=== PATIENT | female | born 1940 | race Caucasian/White ===

== ENCOUNTER 2017-03-09 09:42 | Day surgery (SDC) | payer OTHER ==
[~2017-03-09 09:42] MED LIST: Acetaminophen TAB* 325 MG PO PRN; Buffered Lidocaine 0.9% SYRIN* 5 ML/SYR SYRINGE INTRADERM ONE
[2017-03-09] MEDS ORDERED: Midazolam* 1 MG/ML 2 ML VIAL (2 MG) ONE ×2 (12:14→12:30)
[2017-03-09] MEDS ORDERED: fentaNYL* 50 MCG/ML 2 ML VIAL (100 MCG VIAL) ONE (12:28)
[2017-03-09 13:28] VITALS: BP 103/64
[2017-03-09] MEDS ORDERED: Ketorolac 0.5% OPHTH (NF) 0.5 % 5 ML BTL ONE (13:52)
[2017-03-09] MEDS ORDERED: Proparacaine 0.5% OPHTH.SOL* 15 ML BTL ONE (13:53)
[2017-03-09] MEDS ORDERED: acetaZOLAMIDE TAB* 250 MG ONE (13:53)
[2017-03-09] MEDS ORDERED: Phenylephrine 2.5% OPTH.SOL* 2 ML BTL ONE (13:53)
[2017-03-09] MEDS ORDERED: Lidocaine 2% EPI 1:200000 MPF* 20 ML VIAL ONE (13:53)
[2017-03-09] MEDS ORDERED: Neomycin/Polymy/Dex OPTH.SUSP* MAXITROL 0.1% 5 ML ONE (13:53)
[2017-03-09] MEDS ORDERED: Buffered Lidocaine 0.9% SYRIN* 5 ML/SYR SYRINGE ONE (13:53)
[2017-03-09] MEDS ORDERED: Lidocaine 1% MPF* 2 ML VIAL ONE (13:53)
[2017-03-09] MEDS ORDERED: Povidone Iodine 5% OPTH* 30 ML BTL ONE (13:53)
[2017-03-09] MEDS ORDERED: Cyclopentolate 1% OPTH.SOL* 2 ML BTL ONE (13:53)
--- NOTE | 2017-03-09 15:49 | OP ---
DATE OF OPERATION: 03/09/2017 - [facility] DATE OF : 1940. SURGEON: Luis Mayen M.D. PREOPERATIVE DIAGNOSIS: Cataract right eye. POSTOPERATIVE DIAGNOSIS: Cataract right eye. OPERATIVE PROCEDURE: Phacoemulsification right eye with IOL. DESCRIPTION OF PROCEDURE: The patient was brought to the operating room after being given 1/2% Alcaine with epinephrine drops in the preoperative area. The eye was prepped and draped in the usual sterile fashion. Sterile drape and eyelid speculum were placed. Again, topical 1/2% Alcaine with epinephrine was given. A paracentesis incision was made at the 9 o'clock position with the No.75 blade. Clear cornea incision 2.2 x 2.2-mm was created at the 12 o'clock position starting at the anterior limbus using the 2.2-mm keratome. The anterior chamber was irrigated with 0.4 mL of 1% non-preservative intracameral lidocaine and filled with DisCoVisc. A capsulorrhexis was completed using the cystotome and the Utrata forceps. Hydrodissection was performed with balanced salt solution. The lens nucleus was removed with the Phacoemulsification handpiece without incident. Cortex was removed with the irrigation-aspiration handpiece. The capsular bag was re-inflated using DisCoVisc and an [id number] 23.5 implant was inserted with the shooter. The irrigation-aspiration handpiece was used to remove all residual DisCoVisc. The eye was refilled with balanced salt solution and the wound checked and found to be watertight. Topical Maxitrol drops were given. [id number]/[facility] #: [id number] [facility]
[2017-03-15] MEDS ORDERED: Buffered Lidocaine 0.9% SYRIN* 5 ML/SYR SYRINGE INTRADERM ONE (11:23)
[2017-03-16] MEDS ORDERED: Acetaminophen TAB* 325 MG PO PRN (05:00)
== END 2017-03-09 13:43 | disposition home or self-care (01) ==
LOC: OREAST 09:42
PROVIDERS: ATTEND Specialist
DX: H25.811 Combined forms of age-related cataract, right eye (principal); H43.813 Vitreous degeneration, bilateral; Z79.899 Other long term (current) drug therapy; E03.9 Hypothyroidism, unspecified; E78.00 Pure hypercholesterolemia, unspecified
CPT/HCPCS: A9270-GY; J2250; J3010; V2632

== ENCOUNTER 2017-11-12 12:45 | Emergency (ER) | payer OTHER ==
[2017-11-12 13:33] VITALS: BP 100/62
[2017-11-12] MEDS ORDERED: Tetracaine 0.5% OPTH.SOL 4 ML* 1 DROP BTL LEFT EYE ONE (14:07)
[2017-11-12] MEDS ORDERED: Fluorescein Sod TOPICAL 0.6* 0.6 MG TEST OPHTHALMIC ONE (14:08)
--- NOTE | 2017-11-12 14:54 | UC ---
Eye Complaint HPI - HPI Summary HPI Summary: c/o redness, itching and stinging of left eye since this morning, and that she spent most of the day in the garden yesterday. Denies discharge from eye, denies foreign body sensation, states she has mostly stinging and redness. Denies chills, blurred vision, fever - History of Current Complaint Chief Complaint: UCEye Stated Complaint: EYE ISSUE Time Seen by Provider: 11/12/17 13:56 Hx Obtained From: Patient ?: No Onset/Duration: Sudden Onset, Lasting Hours Timing: Constant Severity Initially: Mild Severity Currently: Mild Pain Intensity: 0 Pain Scale Used: 0-10 Numeric Location of Injury: Conjunctiva Aggravating Factor(s): Nothing Alleviating Factor(s): Nothing Associated Signs And Symptoms: Positive: Negative - Risk Factors Penetrating Injury Risk Factor: Negative Globe Rupture Risk Factors: Negative Optic Artery Occlusion Risk Factors: Negative - Allergies/Home Medications Allergies/Adverse Reactions: Allergies Allergy/AdvReac Type Severity Reaction Status Date / Time MS Clioquinol [From Hysone] Allergy Severe Unknown Verified 11/12/17 13:34 Reaction Details MS Hydrocortisone Allergy Severe Unknown Verified 11/12/17 13:34 [From Hysone] Reaction Details MS Iodine [Iodine] Allergy Intermediate Rash Verified 11/12/17 13:34 MS Latex [Latex] Allergy Intermediate Rash Verified 11/12/17 13:34 MS Papaya Derivatives Allergy Intermediate STOMACH Verified 11/12/17 13:34 [Papaya Derivatives] ACHE MS Nickel [Nickel] Allergy Unknown Verified 11/12/17 13:34 Reaction Details MS Hydrocodone [Hydrocodone] AdvReac Intermediate Vomiting Verified 11/12/17 13: 34 Home Medications: Home Medications Biotin [Biotin Ultra Strength] 10 mg PO EVERY OTHER DAY 11/12/17 [History Confirmed 11/12/17] PMH/Surg Hx/FS Hx/Imm Hx Previously Healthy: Yes Endocrine History: Hypothyroidism Psychological History: Depression - Surgical History Surgical History: Yes Surgery Procedure, Year, and Place: TONSILLECTOMY. APPENDECTOMY. CHOLECYSECTOMY. . URETHRAL SURGERY. LASER SX OF UTERINE FIBROIDS - Social History Alcohol Use: Rare Substance Use Type: None Smoking Status (MU): Never Smoked Tobacco - Immunization History Most Recent Influenza Vaccination: FALL 2013 Most Recent Tetanus Shot: UP TO DATE Most Recent Pneumonia Vaccination: UP TO DATE Review of Systems Eyes: Eye Redness All Other Systems Reviewed And Are Negative: Yes Physical Exam Triage Information Reviewed: Yes Appearance: Well-Appearing, No Pain Distress, Well-Nourished Vital Signs: Initial Vital Signs Temp 98.6 F 11/12/17 13:23 Pulse 78 11/12/17 13:23 Resp 16 11/12/17 13:23 BP 100/62 11/12/17 13:23 Pulse Ox 97 11/12/17 13:23 Vital Signs Reviewed: Yes Eyes: Positive: Conjunctiva Inflamed, Other: - eyelid evertion did not reveal any foreign body, uptake of fluorescein on small area of sclera inferior in midline, no uptake in cornea, JEFFERY, no hyphema, EOM wnl Neck: Positive: Supple Respiratory: Positive: Chest non-tender Cardiovascular: Positive: Pulses Normal, Brisk Capillary Refill Eye Complaint Course/Dx - Course Course Of Treatment: conjunctivitis, start cipro ophthalmic drops as prescribed , f/u eye clinic within a week for f/u - Differential Dx/Diagnosis Provider Diagnoses: conjunctivitis left eye Discharge - Sign-Out/Discharge Documenting (check all that apply): Discharge/Admit/Transfer - Discharge Plan Condition: Stable Disposition: HOME Prescriptions: Ciprofloxacin 0.3% OPTH.VIVI* [Cipro 0.3% Opth*] 1 drop LEFT EYE Q4H 5 Days #1 btl Patient Education Materials: Ciprofloxacin (By mouth), Conjunctivitis (ED) Referrals: Daisy Gaytan NP [Primary Care Provider] - Luis Mayen MD [Medical Doctor] - Additional Instructions: follow up with ophthalmology clinic within a week - Billing Disposition and Condition Condition: STABLE Disposition: Home
== END 2017-11-12 14:37 | disposition home or self-care (01) ==
LOC: UCEAST 12:45
DX: H10.32 Unspecified acute conjunctivitis, left eye (principal); E03.9 Hypothyroidism, unspecified; F32.9 Major depressive disorder, single episode, unspecified; Z88.5 Allergy status to narcotic agent; Z88.8 Allergy status to other drugs, medicaments and biological substances; Z88.3 Allergy status to other anti-infective agents; Z91.040 Latex allergy status
CPT/HCPCS: 99212; A9270-GY; G0463

== ENCOUNTER 2019-07-05 18:06 | Emergency (ER) | payer OTHER, MEDICARE ==
--- OUTSIDE RECORDS SUMMARY | 2019-07-05 18:40 | XMS REPORT | Continuity of Care Document ---
:1940 External Reference #:[id number] Author Name Jody Shannon M.D., FACP (transmitted by agent of provider Lenora Daniels) Address [address], [place] [address] Care Team Providers Name Role Phone Jody Shannon MD - Internal Medicine Care Team Information Cdl Flatbed Truck Driver [phone] Lis Fong MD - Internal Care Team Information [employer]dl [employer]bed Truck Driver [phone] Medicine Problems Active Problems Provider Date Pure hypercholesterolemia Jody Shannon M.D., FACP Onset: 04/20/2011 Hypothyroidism Jody Shannon M.D., FACP Onset: 04/20/2011 Social History Type Date Description Comments Sex Unknown ETOH Use Currently consumes Seldom alcohol Tobacco Use Start: Unknown Patient has never smoked Smoking Status Reviewed: 05/24/19 Patient has never smoked Exercise Exercises regularly [place], goes to the Type/Frequency gym Allergies, Adverse Reactions, Alerts Active Allergies Reaction Severity Comments Date Iodine Urticaria Moderate 12/09/2009 Hydrocodone Nausea and Vomiting Severe 09/15/2010 Latex Contact dermatitis Moderate 08/03/2012 Nickel Contact dermatitis Moderate 08/03/2012 Hyscon Severe 08/07/2013 Medications Active Medications SIG Qnty Indications Ordering Date Provider Amitriptyline HCL 1 by mouth qhs 30tabs K58.1 Jody Shannon, 05/24/2019 10mg M.D., FACP Tablets Azithromycin 2 by mouth day 1 6tabs H66.91 Jody Shannon, 05/18/2019 250mg 1 by mouth daily M.D., FACP Tablets until gone Alendronate Sodium take 1 tablet by 12tabs Daisy Gaytan, 01/23/2019 70mg mouth once a N.P. Tablets week, as directed Pantoprazole Sodium 1 by mouth every 30tabs K21.9 Daisy Gaytan, 2018 day N.P. 20mg Tablets DR Clark Using Applicator, 24tabs Daisy Gaytan, 10/30/2018 10mcg Tablets Insert 1 Tablet N.P. Vaginally Twice Weekly Famotidine 1 by mouth twice 30tabs Daisy Gaytan, 11/19/2016 40mg Tablets a day N.P. Fioricet take one capsule 30caps Daisy Gaytan, 08/20/2015 50-300-40mg by mouth every 6 N.P. Capsules hours as needed for headaches; maximum daily dose = 4 Vitamin C 1 po qd Jody Shannon, 08/07/2013 500mg M.D., FACP Chewtabs Levothyroxine Sodium take 1 tablet by 72tabs Daisy Gaytan, 08/21/2011 mouth 6 times a N.P. 100mcg Tablets week Centrum 1 tablet daily 100tabs Jody Shannon, 09/14/2010 Tablets M.D., FACP Remeron 08/22/18 now 90tabs [facility], 02/12/2010 15mg Tablets taking 45 mg. 3 Chandler Wise MD by mouth at bedtime Simvastatin Take 1 Tablet By 90tabs Daisy Gaytan, 12/10/2009 10mg Mouth Daily N.P. Tablets Xanax one by mouth up 20tabs Unknown 0.25mg Tablets to two times daily as needed for anxiety Vit D 1 pill 4 times a Unknown 1000Iu week Calcium 600 + D 2 tabs daily 60tabs Unknown [id number] Tablets Magnesium Malete 1 by mouth daily Unknown 400mg Tablets Ibuprofen 200 2 tabs as needed Unknown 200mg Tablets Fish Oil 2000mg daily for Unknown dry eyes Gaviscon 500MG take as needed Unknown Tylenol 2 by mouth every Unknown 325mg Tablets 6 hours as needed pain History Medications Esomeprazole Magnesium 1 by mouth 30caps K21.9 Daisy Gaytan, 12/27/2018 - every day N.P. 01/12/2019 20mg Capsules Immunizations CPT Code Status Date Vaccine Lot # [id number] Given 02/28/2019 Fluzone High Dose [id number] Given 03/01/2018 Influenza Virus Vaccine, Quadrivalent, Split, Preservative Free 63428 Given 03/16/2017 Fluzone High Dose Q2038 Given 04/17/2016 Fluzone Vaccine 02584 Given 11/20/2015 Pneumococcal Conjugate Vaccine 13 Valent For [id number] Intramuscular Use 55387 Given 03/24/2015 Influenza Virus Vaccine, Quadrivalent, Split, Preservative Free 66472 Given 03/12/2014 Flu Vaccine Split Virus Preservative Free For Indiv 3Yr Older 65614 Given 08/07/2013 Tdap - Tetanus/Diptheria/Acellular Pertussis [id number] Q2036 Given 03/01/2013 Flulaval Vaccine [id number] Given 02/12/2010 Influenza Virus 3Yrs & Over 88348 Given 08/24/2007 Zoster (Zostavax) 91396 Given 04/11/2007 Pneumonia Vaccine [id number] 27740 Given 09/04/2000 Tdap - Tetanus/Diptheria/Acellular Pertussis [id number] Vital Signs Date Vital Result Comment 05/24/2019 3:22pm Height 60.5 inches 5'0.50" Weight 110.25 lb Heart Rate 77 /min BP Systolic Sitting 105 mmHg Rue reg cuff BP Diastolic Sitting 73 mmHg Rue reg cuff O2 % BldC Oximetry 98 % BMI (Body Mass Index) 21.2 kg/m2 05/18/2019 4:34pm Height 60.5 inches 5'0.50" Weight 110.25 lb Heart Rate 74 /min BP Systolic 100 mmHg BP Diastolic 60 mmHg O2 % BldC Oximetry 97 % BMI (Body Mass Index) 21.2 kg/m2 Results Test Acquired Date Facility Test Result H/L Range Note Lipid Profile 01/11/2019 [facility] Triglycerides 52 mg/dL 1 (Trig/Chol/HDL) [address] [place] [address] [phone] Cholesterol 169 mg/dL 2 HDL Cholesterol 54.0 mg/dL 3 LDL Cholesterol 105 mg/dL 4 Comp Metabolic 01/11/2019 [facility] Sodium 141 mmol/L Normal 135-[address] [place] [address] [phone] Potassium 4.3 mmol/L Normal 3.5-5.0 Chloride 108 mmol/L Normal 101-111 Co2 Carbon Dioxide 26 mmol/L Normal 22-32 Anion Gap 7 mmol/L Normal 2-11 Glucose 107 mg/dL High 70-100 Blood Urea Nitrogen 22 mg/dL Normal 6-24 Creatinine 0.75 mg/dL Normal 0.51-0.95 BUN/Creatinine Ratio 29.3 High 8-20 Calcium 9.6 mg/dL Normal 8.6-10.3 Total Protein 6.6 g/dL Normal 6.4-8.9 Albumin 4.5 g/dL Normal 3.2-5.2 Globulin 2.1 g/dL Normal 2-4 Albumin/Globulin Ratio 2.1 Normal 1-3 Total Bilirubin 0.50 mg/dL Normal 0.2-1.0 Alkaline Phosphatase 49 U/L Normal 34-104 Alt 18 U/L Normal 7-52 Ast 20 U/L Normal 13-39 Egfr Non- 74.9 >60 Egfr 90.7 >60 5 Laboratory 01/11/2019 [facility] TSH (Thyroid 1.29 Normal 0.34 -5.60 6 test finding [address] Stim Horm) mcIU/[place] [address] [phone] 1 Desirable: <150 Borderline High: 150-199 High: 200-499 Very High: >500 2 Desirable: <200 Borderline High: 200-239 High: >239 3 Low: <40 Desirable: 40-60 High: >60 4 Desirable: <100 Near Optimal: 100-129 Borderline High: 130-159 High: 160-189 Very High: >189 5 Because ethnic data is not always readily available, this report includes an eGFR for both -Americans and non- Americans. The National Kidney Disease Education Program (NKDEP) does not endorse the use of the MDRD equation for patients that are not between the ages of 18 and 70, are , have extremes of body size, muscle mass, or nutritional status, or are non- or non-. According to the National Kidney Foundation, irrespective of diagnosis, the stage of the disease is based on the level of kidney function: Stage Description GFR(mL/min/1.73 m(2)) 1 Kidney damage with normal or decreased GFR 90 2 Kidney damage with mild decrease in GFR 60-89 3 Moderate decrease in GFR 30-59 4 Severe decrease in GFR 15-29 5 Kidney failure <15 (or dialysis) 6 FASTING 10 HOUR Procedures Date Code Description Status 01/10/2019 [id number] Bone Mineral Density Test Completed 01/09/2019 [id number] Mammogram Completed 12/06/2017 [id number] Mammogram Completed 01/07/2017 [id number] Mammogram Completed 01/06/2016 [id number] Bone Mineral Density Test Completed 01/06/2016 [id number] Mammogram Completed 11/19/2015 [id number] Colonoscopy Completed 12/30/2014 [id number] Mammogram Completed 12/21/2013 [id number] Mammogram Completed 12/20/2012 [id number] Bone Mineral Density Test Completed 12/20/2012 [id number] Mammogram Completed 12/20/2011 [id number] Mammogram Completed 01/18/2011 [id number] Mammogram Completed 01/12/2010 [id number] Mammogram Completed 01/05/2008 [id number] Bone Mineral Density Test Completed 11/07/2003 [id number] Colonoscopy Completed Medical Devices Description No Information Available Encounters Type Date Location Provider Dx Diagnosis Office Visit 12/27/2018 [employer] [facility] Daisy Gaytan, Z00.00 Encntr for general 1:40p Medicine - Ccmob N.P. adult medical exam w/o abnormal findings Z12.31 Encntr screen mammogram for malignant neoplasm of breast E03.9 Hypothyroidism, unspecified E78.00 Pure hypercholesterolemia, unspecified N95.9 Unspecified menopausal and perimenopausal disorder G47.00 Insomnia, unspecified F33.9 Major depressive disorder, recurrent, unspecified K21.9 Gastro-esophageal reflux disease without esophagitis Assessments Date Code Description Provider 05/24/2019 K58.1 Irritable bowel syndrome with constipation Jody Shannon M.D., FACP 05/24/2019 H65.21 Chronic serous otitis media, right ear Jody Shannon M.D., FACP 05/24/2019 K21.9 Gastro-esophageal reflux disease without Jody Shannon M.D. , FACP esophagitis 05/18/2019 H66.91 Otitis media, unspecified, right ear Jody Shannon M.D., FACP 05/18/2019 M19.91 Primary osteoarthritis, unspecified site Jody Shannon M.D. , FACP 05/18/2019 L29.9 Pruritus, unspecified Jody Shannon M.D., FACP 05/18/2019 R68.84 Jaw pain Jody Shannon M.D., [facility] 12/27/2018 Z00.00 Encounter for general adult medical Daisy Varn, N.P. examination without abno 12/27/2018 Z12.31 Encounter for screening mammogram for Daisy Varn, N.P. malignant neoplasm of 12/27/2018 E03.9 Hypothyroidism, unspecified Daisy Varn, N.P. 12/27/2018 E78.00 Pure hypercholesterolemia, unspecified Daisy Varn, N.P. 12/27/2018 N95.9 Unspecified menopausal and perimenopausal Daisy Varn, N.P. disorder 12/27/2018 G47.00 Insomnia, unspecified Daisy Varn, N.P. 12/27/2018 F33.9 Major depressive disorder, recurrent, Daisy Varn, N.P. unspecified 12/27/2018 K21.9 Gastro-esophageal reflux disease without Daisy Varn, N.P. esophagitis Plan of Treatment Future Appointment(s):12/31/2019 2:20 pm - Daisy Contrerasn, N.P. at [facility] Internal Medicine - [facility]05/24/2019 - Jody Shannon M.D., FACPK58.1 Irritable bowel syndrome with constipationNew Medication:Amitriptyline HCL 10 mg - 1 by mouth qhsComments:IRRITABLE BOWEL SYNDROME:There are many factors that influence gut motility. We talked about fiber,probiotics and FODMAPS. I suspect that your upper abdominal symptoms are due to this.Keep yourself well hydrated. Use a fiber supplement like Metamucil or Benefiber. Align is the name of a probiotic.I have given you some infromation from a website called [employer]. We talked about the utility of resuming a low dose of the amitriptyline.H65.21 Chronic serous otitis media, right earComments:EAR CONGESTION: I do not see any evidence of infection. I hope that your symptoms will improve as you continue the nasal steroid spray.If you feel as though your symptoms are not improving over the next week, please call me back. It is posssible that you will need to see an ENT.K21.9 Gastro-esophageal reflux disease without esophagitisComments: GASTRITIS:I understand that you are H. pylori negative but that at your last endoscopy some inflammation was seen.I think that you should follow up with a service car operator.Referral:Marcello Browning MD, Gastroenterology Functional Status Description No Information Available Mental Status Description No Information Available Referrals Refer to Reason for Referral Status Appt Date Marcello Browning MD GERD, follow up EGD Created [address] [place], [place] [id number] [phone]
--- OUTSIDE RECORDS SUMMARY | 2019-07-05 18:40 | XMS REPORT | Continuity of Care Document ---
:1940 External Reference #:[id number] Author Name Jody Shannon M.D., FACP (transmitted by agent of provider Teresa Haley ) Address [address] [place] [id number] Care Team Providers Name Role Phone Jody Shannon MD - Internal Medicine Care Team Information Hat Steamer [phone] Lis Fong MD - Internal Care Team Information Hat Steamer [phone] Medicine Problems Active Problems Provider Date Pure hypercholesterolemia Jody Shannon M.D., FACP Onset: 04/20/2011 Hypothyroidism Jody Shannon M.D., FACP Onset: 04/20/2011 Social History Type Date Description Comments Sex Unknown ETOH Use Currently consumes Seldom alcohol Tobacco Use Start: Unknown Patient has never smoked Smoking Status Reviewed: 05/18/19 Patient has never smoked Exercise Exercises regularly [place], goes to the [employer] gym Allergies, Adverse Reactions, Alerts Active Allergies Reaction Severity Comments Date Iodine Urticaria Moderate 12/09/2009 Hydrocodone Nausea and Vomiting Severe 09/15/2010 Latex Contact dermatitis Moderate 08/03/2012 Nickel Contact dermatitis Moderate 08/03/2012 Hyscon Severe 08/07/2013 Medications Active Medications SIG Qnty Indications Ordering Date Provider Azithromycin 2 by mouth day 1 6tabs H66.91 Jody Shannon, 05/18/2019 250mg 1 by mouth daily MEbonie, FACP Tablets until gone Alendronate Sodium take [...] Tablets M.D., FACP Remeron 08/22/18 now 90tabs [facility], 02/12/2010 15mg Tablets taking 45 mg. 3 Chandler Wise MD by mouth at bedtime Simvastatin Take 1 Tablet By 90tabs Daisy Gaytan, 12/10/2009 10mg Mouth Daily N.P. Tablets Xanax one by mouth up 20tabs Unknown 0.25mg Tablets to two times daily as needed for anxiety Vit D daily Unknown 1000Iu Calcium 600 + D 1 po bid 60tabs Unknown [id number] Tablets Magnesium Malete 1 by mouth daily Unknown 400mg Tablets Ibuprofen 200 2 tabs as needed Unknown 200mg Tablets Fish Oil 2000mg daily for Unknown dry eyes Gaviscon 500MG take as needed Unknown Biotin Maximum 2500 mg once Unknown Strength daily [id number] Tablets Tylenol 2 by mouth every Unknown 325mg Tablets 6 hours as needed pain History Medications Esomeprazole Magnesium 1 by mouth 30caps K21.9 Daisy Gaytan, 12/27/2018 - every day N.P. 01/12/[address] Benitez CPT Code Status Date Vaccine Lot # [id number] Given 02/28/2019 Fluzone High Dose 09039 Given 03/01/2018 Influenza Virus Vaccine, Quadrivalent, Split, Preservative Free 39152 Given 03/16/2017 Fluzone High Dose Q2038 Given 04/17/2016 Fluzone Vaccine 76219 Given 11/20/2015 Pneumococcal Conjugate Vaccine 13 Valent For [id number] Intramuscular Use 66050 Given 03/24/2015 Influenza Virus Vaccine, Quadrivalent, Split, Preservative Free 02191 Given 03/12/2014 Flu Vaccine Split Virus Preservative Free For Indiv 3Yr Older 59106 Given 08/07/2013 Tdap - Tetanus/Diptheria/Acellular Pertussis [id number] Q2036 Given 03/01/2013 Flulaval Vaccine 19083 Given 02/12/2010 Influenza Virus 3Yrs & Over 68553 Given 08/24/2007 Zoster (Zostavax) 65346 Given 04/11/2007 Pneumonia Vaccine [id number] 74491 Given 09/04/2000 Tdap - Tetanus/Diptheria/Acellular Pertussis [id number] Vital Signs Date Vital Result Comment 05/18/2019 4:34pm Height 60.5 inches 5'0.50" Weight 110.25 lb Heart Rate 74 /min BP Systolic 100 mmHg BP Diastolic 60 mmHg O2 % BldC Oximetry 97 % BMI (Body Mass Index) 21.2 kg/m2 12/27/2018 1:53pm Height 60.5 inches 5'0.50" Weight 108.00 lb Heart Rate 76 /min BP Systolic Sitting 98 mmHg BP Diastolic Sitting 66 mmHg Body Temperature 97.8 F O2 % BldC Oximetry 96 % BMI (Body Mass Index) 20.7 kg/m2 Results Test Acquired Date Facility Test Result H/L Range Note Lipid Profile 01/11/[address] [facility] Triglycerides 52 mg/dL 1 (Trig/Chol/HDL) [address] [place] [address] [phone] Cholesterol 169 mg/dL 2 HDL Cholesterol 54.0 mg/dL 3 LDL Cholesterol 105 mg/dL 4 Comp Metabolic 01/11/[address] [facility] Sodium 141 mmol/L Normal 135-[address] [place] [address] [phone] Potassium 4.3 mmol/L Normal 3.5-5.0 Chloride 108 [...] >60 Egfr 90.7 >60 5 Laboratory 01/11/[address] [facility] TSH (Thyroid 1.29 Normal 0.34 -5.60 6 test finding [address] Stim Horm) mcIU/[place] [address] [phone] 1 Desirable: <150 Borderline High: 150-199 High: [...] HOUR Procedures Date Code Description Status 01/10/2019 542045254 Bone Mineral Density Test Completed 01/09/2019 [id number] Mammogram Completed 12/06/2017 [id number] Mammogram Completed 01/07/2017 [id number] Mammogram Completed 01/06/2016 [id number] Bone Mineral Density Test Completed 01/06/2016 [id number] Mammogram Completed 11/19/2015 [id number] Colonoscopy Completed 12/30/2014 [id number] Mammogram Completed 12/21/2013 [id number] Mammogram Completed 12/20/2012 [id number] Bone Mineral Density Test Completed 12/20/2012 [id number] Mammogram Completed 12/20/2011 [id number] Mammogram Completed 01/18/2011 [id number] Mammogram Completed 01/12/2010 [id number] Mammogram Completed 01/05/2008 [id number] Bone Mineral Density Test Completed 11/07/2003 [id number] Colonoscopy Completed Medical Devices Description No Information Available Encounters Type Date Location Provider Dx Diagnosis Office Visit 12/27/2018 [facility] Daisy Gaytan Z00.00 Encntr for general 1:40p Medicine - Ccmob N.P. adult medical exam w/o abnormal findings Z12.31 Encntr screen mammogram for malignant neoplasm of breast E03.9 Hypothyroidism, unspecified E78.00 Pure hypercholesterolemia, unspecified N95.9 Unspecified menopausal and perimenopausal disorder G47.00 Insomnia, unspecified F33.9 Major depressive disorder, recurrent, unspecified K21.9 Gastro-esophageal reflux disease without esophagitis Assessments Date Code Description Provider 05/18/2019 H66.91 Otitis media, unspecified, right ear Jody Shannon M.D., FACP 05/18/2019 M19.91 Primary osteoarthritis, unspecified site Jody Shannon M.D. , FACP 05/18/2019 L29.9 Pruritus, unspecified Jody Shannon M.D., FACP 05/18/2019 R68.84 Jaw pain Jody Shannon M.D., FACP 12/27/2018 Z00.00 Encounter for general adult medical Rush Reyes.Bernadette examination without abno 12/27/2018 Z12.31 Encounter for [...] Treatment Future Appointment(s):12/31/2019 2:20 pm - Daisy Gaytan[facility] N.P. at [facility] - Jody Shannon M.D., FACPH66.91 Otitis media, unspecified, right earNew Medication:Azithromycin 250 mg - 2 by mouth day 1 1 by mouth daily until goneComments:EAR INFECTION:I have called in an rx for a stronger antibiotic to your pharmacy. I think that a nasal steroid spray may also help. 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 Since this problem represents osteoarthritis of that joint and it is the natural history of osteoarthritis to wax and wane, it is possible that your jaw symptoms will spontaneously improve. I do not think it is consistent with osteonecrosis of the jaw as a consequence of the bisphosphonate.Follow up: schedule office visit to discuss GI issues Functional Status Description No Information Available Mental Status Description No Information Available Referrals Description No Information Available
--- OUTSIDE RECORDS SUMMARY | 2019-07-05 18:40 | XMS REPORT | Continuity of Care Document ---
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 [phone] Problems Active Problems Provider Date Gastroesophageal reflux disease Asad Barajas MD Onset: 12/19/2015 Irritable bowel syndrome characterized Chacha Caban PA-C Onset: by alternating bowel habit Social History Type Date Description Comments Sex Unknown ETOH Use seldom Tobacco Use Start: Unknown Patient has never smoked Tobacco Use Start: Unknown Secondhand smoke to age 19 Smoking Status Reviewed: 06/20/19 Secondhand smoke to age 19 Allergies, Adverse Reactions, Alerts Active Allergies Reaction Severity Comments Date Hyscon 08/07/2013 Latex Contact dermatitis Moderate 08/03/2012 Nickel Contact dermatitis Moderate 08/03/2012 Hydrocodone Nausea and Vomiting Severe 09/15/2010 Iodine Urticaria Moderate 12/09/2009 Medications Active Medications SIG Qnty Indications Ordering Date Provider Famotidine take 1 tablet by 180tabs Marissa 12/19/2015 40mg Tablets mouth twice a day MD Javier Fioricet take one capsule 30caps Daisy Gaytan NP 08/20/2015 50-300-40mg by mouth every 6 Capsules hours as needed for headaches; maximum daily dose = 4 Fish Oil 1 po qd Daisy Gaytan NP 08/07/2013 1000mg Capsules Vitamin C 1 po qd Jody Shannon MD 08/07/2013 500mg Chewtabs Levothyroxine Sodium take 1 tablet 6 90tabs Daisy Gaytan NP 08/21/2011 times a week 100mcg Tablets Tylenol 1-2 tablet as Jody Shannon MD 09/14/2010 325mg Tablets needed for headaches GNP Antacid as needed Jody Shannon MD 09/14/2010 500mg Chewtabs Remeron 3 by mouth at 90tabs Unknown 02/12/2010 30mg Tablets bedtime Vagifem Insert 1 Tablet 24tabs Daisy Gaytan NP 12/10/2009 10mcg Tablets Vaginally Twice Weekly (With Applicator) Simvastatin take 1 tablet 90tabs Daisy Gatyan NP 12/10/2009 10mg daily Tablets Xanax one by mouth up 20tabs Unknown 0.25mg Tablets to three times daily as needed for anxiety Calcium 600-D 1 po bid 60tabs Unknown [id number] Tablets Immunizations Description No Information Available Vital Signs Date Vital Result Comment 06/20/2019 2:52pm Height 60.5 inches 5'0.50" Weight 112.00 lb BP Systolic 110 mmHg BP Diastolic 62 mmHg Heart Rate 73 /min BMI (Body Mass Index) 21.5 kg/m2 09/30/2017 2:54pm Height 60.5 inches 5'0.50" Weight 108.00 lb BMI (Body Mass Index) 20.7 kg/m2 Results Description No Information Available Procedures Description No Information Available Medical Devices Description No Information Available Encounters Description No Information Available Assessments Date Code Description Provider 06/20/2019 K21.9 Gastro-esophageal reflux disease without Chacha Caban PA-C esophagitis 06/20/2019 K58.2 Mixed irritable bowel syndrome Chacha Caban PA-C Plan of Treatment Future Appointment(s):07/24/2019 11:00 am - Chacha Caban PA-C at [facility]06/20/2019 - DARIEL Richard CK21.9 Gastro-esophageal reflux disease without dlixqquniaaY19.2 Mixed irritable bowel syndrome Functional Status Description No Information Available Mental Status Description No Information Available Referrals Description No Information Available
--- OUTSIDE RECORDS SUMMARY | 2019-07-05 18:40 | XMS REPORT | Continuity of Care Document ---
:1940 External Reference #:[id number] Author Name Jody Shannon M.D., FACP (transmitted by agent of provider Regla Bledsoe) Address [address], [place] [address] Care Team Providers Name Role Phone Jody Shannon MD - Internal Medicine Care Team Information Hydrologist [phone] Lis Fong MD - Internal Care Team Information Hydrologist [phone] Medicine Problems Active Problems Provider Date Pure hypercholesterolemia Jody Shannon M.D., FACP Onset: 04/20/2011 Hypothyroidism Jody Shannon M.D., FACP Onset: 04/20/2011 Social History Type Date Description Comments Sex Unknown ETOH Use Currently consumes Seldom alcohol Tobacco Use Start: Unknown Patient has never smoked Smoking Status Reviewed: 07/03/19 Patient has never smoked Exercise Exercises regularly [...] qhs 30tabs K58.1 Jody Shannon, 05/24/2019 10mg Nia, FACP Tablets Alendronate Sodium take 1 tablet by 12tabs Daisy Gaytan, 01/23/2019 70mg mouth once a N.P. Tablets week, as directed Yuvafem Using Applicator, 24tabs Daisy Gaytan, 10/30/2018 10mcg [...] Tablets week Centrum 1 tablet daily 100tabs Jdoykim Shannon, 09/14/2010 Tablets MEbonie, FACP Remeron 08/22/18 now 90tabs [facility], 02/12/2010 15mg Tablets taking 45 mg. 3 Chandler Wise MD by mouth at bedtime Simvastatin Take 1 Tablet By 90tabs Daisy Gaytan, 12/10/2009 10mg Mouth Daily N.P. Tablets Tylenol 2 by mouth every Unknown 325mg Tablets 6 hours as needed pain Gaviscon 500MG take as needed Unknown Fish Oil 2000mg daily for Unknown dry eyes Ibuprofen 200 2 tabs as needed Unknown 200mg Tablets Magnesium Malete 1 by mouth daily Unknown 400mg Tablets Calcium 600 + D 2 tabs daily 60tabs Unknown [id number] Tablets Vit D 1 pill 4 times a Unknown 1000Iu week Xanax one by mouth up 20tabs Unknown 0.25mg Tablets to two times daily as needed for anxiety History Medications Azithromycin 2 by mouth day 6tabs H66.91 Jody Shannon, 05/18/2019 - 250mg 1 1 by mouth M.Yfn, FACP 07/02/2019 Tablets daily until gone Pantoprazole Sodium 1 by mouth 30tabs K21.9 Daisy Gaytan, 01/12/2019 - every day N.P. 07/02/[address] Benitez CPT Code Status Date Vaccine Lot # [id number] Given 02/28/2019 Fluzone High Dose 63531 Given 03/01/2018 Influenza Virus Vaccine, Quadrivalent, Split, Preservative Free 61691 Given 03/16/2017 Fluzone High Dose Q2038 Given 04/17/2016 Fluzone Vaccine 22647 Given 11/20/2015 Pneumococcal Conjugate Vaccine 13 Valent For [id number] Intramuscular Use 02429 Given 03/24/2015 Influenza Virus Vaccine, Quadrivalent, Split, Preservative Free 18675 Given 03/12/2014 Flu Vaccine Split Virus Preservative Free For Indiv 3Yr Older 07108 Given 08/07/2013 Tdap - Tetanus/Diptheria/Acellular Pertussis [id number] Q2036 Given 03/01/2013 Flulaval Vaccine 13088 Given 02/12/2010 Influenza Virus 3Yrs & Over 39020 Given 08/24/2007 Zoster (Zostavax) 58938 Given 04/11/2007 Pneumonia Vaccine [id number] 22066 Given 09/04/2000 Tdap - Tetanus/Diptheria/Acellular Pertussis [id number] Vital Signs Date Vital Result Comment 07/03/2019 2:17pm Height 60.5 inches 5'0.50" Weight 111.38 lb Heart Rate 82 /min BP Systolic 100 mmHg BP Diastolic 62 mmHg Body Temperature 97.7 F O2 % BldC Oximetry 93 % BMI (Body Mass Index) 21.4 kg/m2 05/24/2019 3:22pm Height 60.5 inches 5'0.50" Weight 110.25 lb Heart Rate 77 /min BP Systolic Sitting 105 mmHg Rue reg cuff BP Diastolic Sitting 73 mmHg Rue reg cuff O2 % BldC Oximetry 98 % BMI (Body Mass Index) 21.2 kg/m2 Results Test Acquired Date Facility Test Result H/L Range Note Order 07/03/2019 [facility] In-House EKG <pending> Lipid Profile 01/11/2019 [facility] Triglycerides 52 mg/dL 1 (Trig/Chol/HDL) [address] [place] [address] [phone] Cholesterol 169 mg/dL 2 HDL Cholesterol 54.0 mg/dL 3 LDL Cholesterol 105 mg/dL 4 Comp Metabolic 01/11/2019 [facility] Sodium 141 mmol/L Normal 135-[address] [place] [address] [phone] Potassium 4.3 mmol/L Normal 3.5-5.0 Chloride 108 [...] >60 Egfr 90.7 >60 5 Laboratory 01/11/2019 [facility] TSH (Thyroid 1.29 Normal 0.34 -5.60 6 test finding [address] Stim Horm) mcIU/[place] [address] [phone] 1 Desirable: <150 Borderline High: 150-199 High: [...] 10 HOUR Procedures Date Code Description Status 07/03/2019 15915 EKG Tracing & Interpretation Completed 01/10/2019 [id number] Bone Mineral Density Test Completed 01/09/2019 [id number] Mammogram Completed 12/06/2017 [id number] Mammogram Completed 01/07/2017 [id number] Mammogram Completed 01/06/2016 [id number] Bone Mineral Density Test Completed 01/06/2016 [id number] Mammogram Completed 11/19/2015 [id number] Colonoscopy Completed 12/30/2014 [id number] Mammogram Completed 12/21/2013 [id number] Mammogram Completed 12/20/2012 [id number] Mammogram Completed 12/20/2012 [id number] Bone Mineral Density Test Completed 12/20/2011 [id number] Mammogram Completed 01/18/2011 [id number] Mammogram Completed 01/12/2010 [id number] Mammogram Completed 01/05/2008 [id number] Bone Mineral Density Test Completed 11/07/2003 [id number] Colonoscopy Completed Medical Devices Description No Information Available Encounters Type Date Location Provider Dx Diagnosis Office Visit 05/24/2019 [facility] Jody hSannon, K58.1 Irritable bowel 3:30p Medicine - Ccmob M.D., FACP syndrome with constipation H65.21 Chronic serous otitis media, right ear K21.9 Gastro-esophageal reflux disease without esophagitis Office Visit 05/18/2019 4:30p [facility] Jody Shannon, H66.91 Otitis media, Medicine - M.D., FACP unspecified, right Ccmob ear L29.9 Pruritus, unspecified R68.84 Jaw pain M79.644 Pain in right finger(s) Assessments Date Code Description Provider 07/03/2019 R00.2 Palpitations Jody Shannon M.D., FACP 05/24/2019 K58.1 Irritable bowel syndrome with constipation Jody Shannon M.D., FACP 05/24/2019 H65.21 Chronic serous otitis media, right ear Jody Shannon M.D., FACP 05/24/2019 K21.9 Gastro-esophageal reflux disease without Jody Shannon M.D. , FACP esophagitis 05/18/2019 H66.91 Otitis media, unspecified, right ear Jody Shannon M.D., FACP 05/18/2019 L29.9 Pruritus, unspecified Jody Shannon M.D., FACP 05/18/2019 R68.84 Jaw pain Jody Shannon M.D., FACP 05/18/2019 M79.644 Pain in right finger(s) [facility] Shannon M[facility]D., [facility] Plan of Treatment Future Appointment(s):07/23/2019 4:30 pm - Jody Shannon M.D., FACP at [facility] Internal [facility]07/05/2019 3:15 pm - Im Nurse Holter Monitor at [facility]07/04/2019 2:45 pm - Im Nurse Holter Monitor at [facility] Internal [facility]12/31/2019 2:20 pm - Daisy Gaytan N.P. at [facility]07/03/2019 - Jody Shannon M.D., FACPR00.2 PalpitationsNew Orders:Holter Monitor, Scheduled: 07/04/19tress Test, Exercise Nuclear, Ordered: 07/03/19Comments:PALPITATIONS:Your cardiogram today was normal.I agree that this symptom may represent anxiety.I do not think that it is related to the amitriptyline.I would like to schedule a Holter monitor (24 hour EKG).Keep well hydrated.If your symptoms do not spontaneously resolve or are accompanied by chest heaviness and/or shortness of breath, you may need to be evaluated in the Emergency Department.Follow up:After tests: 2-3 weeks Functional Status Description No Information Available Mental Status Description No Information Available Referrals Refer to Reason for Referral Status Appt Date Marcello Browning MD GERD, follow up EGD Closed 06/20/[address] [place] [address] [phone]
[2019-07-05 19:30] LABS: ABS Eosinophils 0.1 10^3/ul (0-0.6); ABS Lymphocytes 1.4 10^3/ul (1.0-4.8); ABS Monocytes 0.4 10^3/ul (0-0.8); ABS Neutrophils 3.4 10^3/ul (1.5-7.7); Eosinophil % 2.1 %; Hematocrit 39 % (35-47); Hemoglobin 13.3 g/dL (12.0-16.0); Lymphocyte % 25.4 %; Mean Corpuscular HGB Conc 35 g/dL (31-36); Mean Corpuscular Hemoglobin 31 pg (27-31); Mean Corpuscular Volume 89 fL (80-97); Mean Platelet Volume 7.9 fL (7.4-10.4); Platelet Count 195 10^3/uL (150-450); Red Blood Count 4.33 10^6 /uL (3.70-4.87); Red Cell Distribution Width 14 % (10-15); White Blood Count 5.4 10^3/uL (3.5-10.8)
[2019-07-05 19:45] LABS: INR 0.97 (0.82-1.09)
[2019-07-05 19:51] LABS: Albumin 4.2 g/dL (3.2-5.2); Albumin/Globulin Ratio 1.6 (1-3); BUN/Creatinine Ratio 24.4 (8-20); Calcium 9.1 mg/dL (8.6-10.3); EGFR African American 86.4 (>60); EGFR Non-African American 71.4 (>60); Globulin 2.7 g/dL (2-4); Potassium 3.8 mmol/L (3.5-5.0); Total Bilirubin 0.4 mg/dL (0.2-1.0); Total Protein 6.9 g/dL (6.4-8.9)
--- NOTE | 2019-07-05 23:36 | ED ---
HPI Chest Pain - HPI Summary HPI Summary: 79-year-old female with significant past medical history of hypothyroidism, anxiety, depression presents to the emergency department today stating she has been having palpitations with left sided burning feeling of her face and left arm. Patient states her symptoms are episodic and began approximately 4 days ago while she was shopping for groceries. Patient states she took Xanax as she believed it was caused by her anxiety and her symptoms improved significantly. Patient saw her primary care physician for this the following day who placed her on a 4 hour Holter monitor and told her to schedule an echocardiogram and stress test. Patient had another episode this afternoon which prompted her to come to the emergency department for further evaluation. Patient states she is a symptomatic at this time and feels much better. Patient denies recent records from drug use or alcohol use. Patient denies associated symptoms such as lightheadedness, diaphoresis, vomiting, abdominal pain. Surgical history and family history noncontributory. - History of Current Complaint Chief Complaint: EDDysrhythmPalp Time Seen by Provider: 07/05/19 23:05 Hx Obtained From: Patient Onset/Duration: Started Days Ago Timing: Intermittent, Lasting Minutes Initial Severity: Moderate Current Severity: None Pain Intensity: 0 Pain Scale Used: 0-10 Numeric Chest Pain Radiates: No - Allergy/Home Medications Allergies/Adverse Reactions: Allergies Allergy/AdvReac Type Severity Reaction Status Date / Time hydrocodone Allergy Vomiting Verified 07/05/19 22:16 hydrocortisone Allergy Unknown Verified 07/05/19 22:16 Reaction Details nickel Allergy Unknown Verified 07/05/19 22:16 Reaction Details papaya Allergy GI Upset Verified 07/05/19 22:16 iodine AdvReac Rash Verified 07/05/19 22:16 latex AdvReac Rash Verified 07/05/19 22:16 PMH/Surg Hx/FS Hx/Imm Hx Endocrine/Hematology History: Reports: Hx Thyroid Disease - hypo Denies: Hx Diabetes Cardiovascular History: Reports: Hx Angina - chest pain/discomfort, Hx Hypercholesterolemia - HLD, STARTED ON SIMVASTATIN Denies: Hx Hypertension, Hx Pacemaker/ICD GI History: Reports: Hx Gall Bladder Disease - S/P SY, Hx Gastroesophageal Reflux Disease, Other GI Disorders - hx of gall bladder stones -removed History: Reports: Hx Kidney Infection - as a child, Other Problems/ Disorders - cyst on kidney Musculoskeletal History: Reports: Hx Arthritis Denies: Hx Rheumatoid Arthritis, Hx Osteoporosis Sensory History: Reports: Hx Cataracts - both eyes, Hx Contacts or Glasses Denies: Hx Hearing Aid Opthamlomology History: Reports: Hx Cataracts - both eyes, Hx Contacts or Glasses Neurological History: Reports: Hx Headaches, Other Neuro Impairments/Disorders - VERTIGO Psychiatric History: Reports: Hx Anxiety, Hx Depression Denies: Hx Panic Disorder - Cancer History Hx Chemotherapy: No Hx Radiation Therapy: No - Surgical History Surgery Procedure, Year, and Place: TONSILLECTOMY. APPENDECTOMY. CHOLECYSECTOMY. . URETHRAL SURGERY. LASER SX OF UTERINE FIBROIDS Hx Anesthesia Reactions: Yes - has nausea and emesis after anesthesia - even after colonoscopy Infectious Disease History: No Infectious Disease History: Denies: Traveled Outside the [place] in Last 30 Days - Social History Alcohol Use: Rare Substance Use Type: Reports: None Smoking Status (MU): Never Smoked Tobacco Review of Systems Constitutional: Negative Eyes: Negative ENT: Negative Positive: Palpitations Positive: Shortness Of Breath Positive: Nausea Genitourinary: Negative Musculoskeletal: Negative Skin: Negative Neurological: Negative Positive: Anxious All Other Systems Reviewed And Are Negative: Yes Physical Exam Triage Information Reviewed: Yes Vital Signs On Initial Exam: Initial Vitals Temp Pulse Resp BP Pulse Ox 98.6 F 87 16 136/73 97 07/05/19 18:08 07/05/19 18:08 07/05/19 18:08 07/05/19 18:08 07/05/19 18:08 Vital Signs Reviewed: Yes Appearance: Positive: Well-Appearing, No Pain Distress, Well-Nourished Skin: Positive: Warm, Skin Color Reflects Adequate Perfusion Eyes: Positive: EOMI, RUPINDER ENT: Positive: Hearing grossly normal Respiratory/Lung Sounds: Positive: Clear to Auscultation, Breath Sounds Present Cardiovascular: Positive: RRR, S1, S2 Abdomen Description: Positive: Nontender, Soft Bowel Sounds: Positive: Present Musculoskeletal: Positive: Strength/ROM Intact Neurological: Positive: Sensory/Motor Intact, Alert, Oriented to Person Place, Time, Normal Gait, Facial Symmetry, Speech Normal Psychiatric: Positive: Normal, Affect/Mood Appropriate AVPU Assessment: Alert Procedures - Sedation Patient Received Moderate/Deep Sedation with Procedure: No Diagnostics - Vital Signs Vital Signs Temp Pulse Resp BP Pulse Ox 07/05/19 23:00 73 15 94 07/05/19 22:41 72 18 106/68 94 07/05/19 22:12 75 96 07/05/19 22:11 78 116/76 97 07/05/19 20:19 98.0 F 80 18 118/66 07/05/19 18:08 98.6 F 87 16 136/73 97 - Laboratory Lab Results: Lab Results 07/05/19 07/05/19 07/05/19 Range/Units 19:20 19:20 19:20 WBC 5.4 (3.5-10.8) 10^3/uL RBC 4.33 (3.70-4.87) 10^6 /uL Hgb 13.3 (12.0-16.0) g/dL Hct 39 (35-47) % MCV 89 (80-97) fL MCH 31 (27-31) pg MCHC 35 (31-36) g/dL RDW 14 (10-15) % Plt Count 195 (150-450) 10^3/uL MPV 7.9 (7.4-10.4) fL Neut % (Auto) 63.8 % Lymph % (Auto) 25.4 % Holmes % (Auto) 8.1 % Eos % (Auto) 2.1 % Baso % (Auto) 0.6 % Absolute Neuts (auto) 3.4 (1.5-7.7) 10^3/ul Absolute Lymphs (auto) 1.4 (1.0-4.8) 10^3/ul Absolute Monos (auto) 0.4 (0-0.8) 10^3/ul Absolute Eos (auto) 0.1 (0-0.6) 10^3/ul Absolute Basos (auto) 0.0 (0-0.2) 10^3/ul Absolute Nucleated RBC 0.0 10^3/ul Nucleated RBC % 0.0 INR (Anticoag Therapy) 0.97 (0.82-1.09) Sodium 141 (135-145) mmol/L Potassium 3.8 (3.5-5.0) mmol/L Chloride 107 (101-111) mmol/L Carbon Dioxide 29 (22-32) mmol/L Anion Gap 5 (2-11) mmol/L BUN 19 (6-24) mg/dL Creatinine 0.78 (0.51-0.95) mg/dL Est GFR ( Amer) 86.4 (>60) Est GFR (Non-Af Amer) 71.4 (>60) BUN/Creatinine Ratio 24.4 H (8-20) Glucose 163 H (70-100) mg/dL Calcium 9.1 (8.6-10.3) mg/dL Total Bilirubin 0.40 (0.2-1.0) mg/dL AST 20 (13-39) U/L ALT 16 (7-52) U/L Alkaline Phosphatase 46 (34-104) U/L Troponin I 0.00 (<0.03) ng/mL Total Protein 6.9 (6.4-8.9) g/dL Albumin 4.2 (3.2-5.2) g/dL Globulin 2.7 (2-4) g/dL Albumin/Globulin Ratio 1.6 (1-3) 07/05/19 Range/Units 22:36 WBC (3.5-10.8) 10^3/uL RBC (3.70-4.87) 10^6 /uL Hgb (12.0-16.0) g/dL Hct (35-47) % MCV (80-97) fL MCH (27-31) pg MCHC (31-36) g/dL RDW (10-15) % Plt Count (150-450) 10^3/uL MPV (7.4-10.4) fL Neut % (Auto) % Lymph % (Auto) % Holmes % (Auto) % Eos % (Auto) % Baso % (Auto) % Absolute Neuts (auto) (1.5-7.7) 10^3/ul Absolute Lymphs (auto) (1.0-4.8) 10^3/ul Absolute Monos (auto) (0-0.8) 10^3/ul Absolute Eos (auto) (0-0.6) 10^3/ul Absolute Basos (auto) (0-0.2) 10^3/ul Absolute Nucleated RBC 10^3/ul Nucleated RBC % INR (Anticoag Therapy) (0.82-1.09) Sodium (135-145) mmol/L Potassium (3.5-5.0) mmol/L Chloride (101-111) mmol/L Carbon Dioxide (22-32) mmol/L Anion Gap (2-11) mmol/L BUN (6-24) mg/dL Creatinine (0.51-0.95) mg/dL Est GFR ( Amer) (>60) Est GFR (Non-Af Amer) (>60) BUN/Creatinine Ratio (8-20) Glucose (70-100) mg/dL Calcium (8.6-10.3) mg/dL Total Bilirubin (0.2-1.0) mg/dL AST (13-39) U/L ALT (7-52) U/L Alkaline Phosphatase (34-104) U/L Troponin I 0.00 (<0.03) ng/mL Total Protein (6.4-8.9) g/dL Albumin (3.2-5.2) g/dL Globulin (2-4) g/dL Albumin/Globulin Ratio (1-3) Result Diagrams: 07/05/19 19:20 07/05/19 19:20 Lab Statement: Any lab studies that have been ordered have been reviewed, and results considered in the medical decision making process. Chest Pain Course/Dx - Course Course Of Treatment: Patient was evaluated in the emergency department today for chest pain. Patient seen and examined her vitals were stable and she is afebrile. EKG was done promptly which shows normal sinus rhythm at a rate of 80 bpm. No evidence of STEMI. Normal axis. There are mild ST segment changes and 23 and aVF however these are noted on past EKGs. No evidence of active ischemia on EKG. Laboratory studies were done which returned within normal limits. Initial troponin and serial troponin 0.00. HEART score 4. Patient's risk for VA was discussed with the patient and she did not desire to be admitted. The patient believes her symptoms to be due to anxiety and she wishes to be discharged and to follow-up with her primary care provider tomorrow for further evaluation. - Chest Pain Differential Diagnosis/HQI/PQRI: Acute VA, ACS, Angina, Other: - anxiety - Diagnoses Provider Diagnoses: Chest pain Discharge ED - Sign-Out/Discharge Documenting (check all that apply): Patient Departure - Discharge Plan Condition: Stable Disposition: HOME Patient Education Materials: Chest Pain (ED) Referrals: Jody Shannon MD [Primary Care Provider] - Additional Instructions: You were seen in the emergency department today due to chest pain. Laboratory studies as well as an EKG were done which showed no evidence of acute medical problems requiring intervention at this time. Although your workup in the emergency department was unremarkable I cannot be certain your symptoms are not cardiac in origin. Please follow-up with your primary care provider in 3 days for further evaluation and management. Please return to the emergency department immediately if you develop any new or worsening symptoms. - Billing Disposition and Condition Condition: STABLE Disposition: Home
[2019-07-06 00:17] VITALS: BP 124/75
== END 2019-07-06 | disposition home or self-care (01) ==
LOC: ED 18:06
DX: R07.9 Chest pain, unspecified (principal); E03.9 Hypothyroidism, unspecified; E78.00 Pure hypercholesterolemia, unspecified; E78.5 Hyperlipidemia, unspecified; K21.9 Gastro-esophageal reflux disease without esophagitis; F41.9 Anxiety disorder, unspecified; F32.9 Major depressive disorder, single episode, unspecified; Z90.89 Acquired absence of other organs; Z90.49 Acquired absence of other specified parts of digestive tract; Z79.899 Other long term (current) drug therapy; Z88.5 Allergy status to narcotic agent; Z88.8 Allergy status to other drugs, medicaments and biological substances; Z91.041 Radiographic dye allergy status; Z91.040 Latex allergy status
CPT/HCPCS: 36415; 80053; 84484; 85025; 85610; 93005; 99283

== ENCOUNTER 2019-09-28 16:12 | Emergency (ER) | payer MEDICARE, OTHER ==
--- OUTSIDE RECORDS SUMMARY | 2019-09-28 16:26 | XMS REPORT | Continuity of Care Document ---
:1940 External Reference #:[id number] Author Name Whtiley Gallardo MD Address 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 70mg Tablets as directed Yuvafem Using Applicator, 24tabs Daisy Gaytan, 10/30/2018 10mcg Tablets Insert 1 Tablet N.P. Vaginally Twice Weekly Famotidine 1 by mouth twice a 30tabs Daisy Gaytan, 11/19/2016 40mg day N.P. Tablets Fioricet take one capsule by 30caps Daisy Gaytan, 08/20/2015 50-300-40mg mouth every 6 hours N.P. Capsules as needed for headaches; maximum daily dose = 4 Vitamin C 1 po qd Jody Shannon, 08/07/2013 500mg M.D., FACP Chewtabs Levothyroxine Sodium take 1 tablet by 72tabs Daisy Gaytan, 08/21/2011 mouth 6 times a week N.P. 100mcg Tablets Centrum 1 tablet daily 100tabs Jody Shannon, 09/14/2010 Tablets M.Yfn, FACP Remeron 08/22/18 now taking 90tabs [facility], 02/12/2010 15mg Tablets 45 mg. 3 by mouth Chandler Wise MD at bedtime Simvastatin Take 1 Tablet By 90tabs Daisy Gaytan, 12/10/2009 10mg Mouth Daily N.P. Tablets Basis By Elysium nicotinamide Unknown riboside 250mg Pterostilbene 50mg once daily Biotin 1/2 by mouth 5 Unknown 5000mcg days/week Capsules Zinc 1/2 tab every other Unknown 50mg Tablets day, 1 tablet daily with colds Tylenol 2 by mouth every 6 Unknown 325mg Tablets hours as needed pain Gaviscon 500MG take as needed Unknown Fish Oil 2000mg daily for dry Unknown eyes Magnesium Malete 1 by mouth daily Unknown 400mg Tablets Calcium 600 + D 2 tabs daily 60tabs Unknown [id number] Tablets Vit D 1 pill 4 times a Unknown 1000Iu week Xanax one by mouth up to 20tabs Unknown 0.25mg Tablets two times daily as needed for anxiety History Medications Azithromycin 2 by mouth day 6tabs H66.91 Jody Shannon, 05/18/2019 - 250mg 1 1 by mouth M.DChilo, FACP 07/02/2019 Tablets daily until gone Medications Administered in Office Medication SIG Qnty Indications Ordering Provider Date Technetium TC 99M Reese Eubanks M.D. 07/19/2019 Per Unit Dose Up To 40 Millicuries Injection Technetium TC 99M TetrofosmReese dhillon M.D. 07/19/2019 Per Unit Dose Up To 40 Millicuries Injection Immunizations CPT Code Status Date Vaccine Lot # [id number] Given 02/28/2019 Fluzone High Dose 14077 Given 03/01/2018 Influenza Virus Vaccine, Quadrivalent, Split, Preservative Free 66434 Given 03/16/2017 Fluzone High Dose Q2038 Given 04/17/2016 Fluzone Vaccine 93601 Given 11/20/2015 Pneumococcal Conjugate Vaccine 13 Valent For [id number] Intramuscular Use 85341 Given 03/24/2015 Influenza Virus Vaccine, Quadrivalent, Split, Preservative Free 04673 Given 03/12/2014 Flu Vaccine Split Virus Preservative Free For Indiv 3Yr Older 95714 Given 08/07/2013 Tdap - Tetanus/Diptheria/Acellular Pertussis [id number] Q2036 Given 03/01/2013 Flulaval Vaccine 62366 Given 02/12/2010 Influenza Virus 3Yrs & Over 27161 Given 08/24/2007 Zoster (Zostavax) 80140 Given 04/11/2007 Pneumonia Vaccine [id number] 65155 Given 09/04/2000 Tdap - Tetanus/Diptheria/Acellular Pertussis [id number] Vital Signs Date Vital Result Comment 07/23/2019 4:46pm Height 60.5 inches 5'0.50" Weight 109.38 lb Heart Rate 81 /min BP Systolic 106 mmHg BP Diastolic 56 mmHg Body Temperature 97.1 F O2 % BldC Oximetry 97 % BMI (Body Mass Index) 21.0 kg/m2 07/04/2019 2:58pm Heart Rate 89 /min BP Systolic Sitting 111 mmHg BP Diastolic Sitting 72 mmHg Results Test Acquired Date Facility Test Result H/L Range Note Order 07/19/2019 [facility] Stress Test, <pending> [address] [place] [address] Nuclear [phone] Laboratory test 07/05/2019 [facility] Troponin-I 0.00 ng/mL < 0.03 [address] (TnI) [place], [place] [id number] [phone] Inr/Protime 07/05/2019 [facility] Inr 0.97 Normal 0.82-1.[address] [place] [address] [phone] CBC Auto Diff 07/05/2019 [facility] White Blood 5.4 Normal 3.5 -10.[address] Count 10^3/[place] [address] [phone] Red Blood Count 4.33 10^6/uL Normal 3.70-4.87 Hemoglobin 13.3 g/dL Normal 12.0-16.0 Hematocrit 39 % Normal 35-47 Mean Corpuscular Volume 89 fL Normal 80-97 Mean Corpuscular Hemoglobin 31 pg Normal 27-31 Mean Corpuscular HGB Conc 35 g/dL Normal 31-36 Red Cell Distribution Width 14 % Normal 10-15 Platelet Count 195 10^3/uL Normal 150-450 Mean Platelet Volume 7.9 fL Normal 7.4-10.4 Abs Neutrophils 3.4 10^3/uL Normal 1.5-7.7 Abs Lymphocytes 1.4 10^3/uL Normal 1.0-4.8 Abs Monocytes 0.4 10^3/uL Normal 0-0.8 Abs Eosinophils 0.1 10^3/uL Normal 0-0.6 Abs Basophils 0.0 10^3/uL Normal 0-0.2 Abs Nucleated RBC 0.0 10^3/uL Granulocyte % 63.8 % Lymphocyte % 25.4 % Monocyte % 8.1 % Eosinophil % 2.1 % Basophil % 0.6 % Nucleated Red Blood Cells % 0.0 Comp Metabolic 07/05/2019 [facility] Sodium 141 mmol/L Normal 135-[address] [place] [address] [phone] Potassium 3.8 mmol/L Normal 3.5-5.0 Chloride 107 mmol/L Normal 101-111 Co2 Carbon Dioxide 29 mmol/L Normal 22-32 Anion Gap 5 mmol/L Normal 2-11 Glucose 163 mg/dL High 70-100 Blood Urea Nitrogen 19 mg/dL Normal 6-24 Creatinine 0.78 mg/dL Normal 0.51-0.95 BUN/Creatinine Ratio 24.4 High 8-20 Calcium 9.1 mg/dL Normal 8.6-10.3 Total Protein 6.9 g/dL Normal 6.4-8.9 Albumin 4.2 g/dL Normal 3.2-5.2 Globulin 2.7 g/dL Normal 2-4 Albumin/Globulin Ratio 1.6 Normal 1-3 Total Bilirubin 0.40 mg/dL Normal 0.2-1.0 Alkaline Phosphatase 46 U/L Normal 34-104 Alt 16 U/L Normal 7-52 Ast 20 U/L Normal 13-39 Egfr Non- 71.4 >60 Egfr 86.4 >60 3 Laboratory test 07/05/2019 [facility] Troponin-I (TnI) 0.00 ng/ mL <0.03 [address] [place] [address] [phone] Order 07/03/2019 [facility] In-House EKG <pending> 1 Troponin-I testing on Plasma Separator Tubes (PST) has a known false positive rate of 0.20-0.40%. All positive troponins reflex immediately to secondary confirmatory testing. Using the [employer] DxI 800 Access Immunoassay systems, the 99th percentile upper reference limit was demonstrated to be < 0.03 ng/mL. 2 Standard intensity warfarin therapeutic range: 2.0-3.0 High intensity warfarin therapeutic range: 2.5-3.5 3 Because ethnic data is not always readily [...] 15-29 5 Kidney failure <15 (or dialysis) 4 Troponin-I testing on Plasma Separator Tubes (PST) has a known false positive rate of 0.20-0.40%. All positive troponins reflex immediately to secondary confirmatory testing. Using the [employer] DxI 800 Access Immunoassay systems, the 99th percentile upper reference limit was demonstrated to be < 0.03 ng/mL. Procedures Date Code Description Status 07/19/2019 74044 Stress Test Completed 07/19/2019 91751 Myocardial Perfusion Imaging Tomographic (Spect) Completed Multiple Studies 07/09/2019 77413 Holter Monitor Review (24 hr)dr alvarez & dimas only Completed 07/04/2019 40735 ECG Monitor/Recording W/Visual Superimposition Completed Scanning 07/03/2019 29435 EKG Tracing & Interpretation Completed 01/10/2019 [id number] Bone Mineral Density Test Completed 01/09/2019 [id number] Mammogram Completed 12/06/2017 [id number] Mammogram Completed 01/07/2017 [id number] Mammogram Completed 01/06/2016 [id number] Bone Mineral Density Test Completed 01/06/2016 [id number] Mammogram Completed 11/19/2015 [id number] Colonoscopy Completed 12/30/2014 [id number] Mammogram Completed 12/21/2013 [id number] Mammogram Completed 12/20/2012 [id number] Mammogram Completed 12/20/2012 [id number] Bone Mineral Density Test Completed 12/20/2011 [id number] Mammogram Completed 01/18/2011 [id number] Mammogram Completed 01/12/2010 [id number] Mammogram Completed 01/05/2008 [id number] Bone Mineral Density Test Completed 11/07/2003 [id number] Colonoscopy Completed Medical Devices Description No Information Available Encounters Type Date Location Provider Dx Diagnosis Office Visit 07/23/2019 [facility] Internal Jody Shannon, R00.2 Palpitations 4:30p Medicine Odin Manzanares M.D., FACP Office Visit 07/03/2019 [facility] Internal Jody Shannon, R00.2 Palpitations 2:00p Medicine Odin Manzanares M.D., FACP Office Visit 05/24/2019 [facility] Internal Jody Shannon, K58.1 Irritable bowel 3:30p Medicine Odin Manzanares M.D., FACP syndrome with constipation H65.21 Chronic serous otitis media, right ear K21.9 Gastro-esophageal reflux disease without esophagitis Office Visit 05/18/2019 4:30p [facility] Internal Jody Shannon, H66.91 Otitis media, Medicine - M.Curtis., FACP unspecified, right Ccmob ear L29.9 Pruritus, unspecified R68.84 Jaw pain M79.644 Pain in right finger(s) Assessments Date Code Description Provider 07/23/2019 R00.2 Palpitations Jody Shannon M.D., FACP 07/19/2019 R94.31 Abnormal electrocardiogram [ECG] [EKG] Reese Hawley M.D. 07/19/2019 R00.2 Palpitations Pj Guzman M.D. 07/19/2019 R07.9 Chest pain, unspecified Pj Guzman M.D. 07/19/2019 R94.31 Abnormal electrocardiogram [ECG] [EKG] Pj Guzman M.D. 07/19/2019 R00.2 Palpitations [facility] Shannon M.D., [facility] 07/09/2019 I49.1 Atrial premature depolarization Pj Guzman M.D. 07/09/2019 I49.3 Ventricular premature depolarization Pj Guzman M.D. 07/05/2019 R00.2 Palpitations Im Nurse Holter Monitor 07/04/2019 R00.2 Palpitations Im Nurse Holter Monitor 07/03/2019 R00.2 Palpitations Jody Shannon M.D., FACP 05/24/2019 K58.1 Irritable bowel syndrome with Jody Shannon M.D., FACP constipation 05/24/2019 H65.21 Chronic serous otitis media, right ear Jody Shannon M.D., FACP 05/24/2019 K21.9 Gastro-esophageal reflux disease without Jody Shannon M.D. , FACP esophagitis 05/18/2019 H66.91 Otitis media, unspecified, right ear Jody Shannon M.D., FACP 05/18/2019 L29.9 Pruritus, unspecified Jody Shannon M.D., FACP 05/18/2019 R68.84 Jaw pain oJdy Shannon M.D., FACP 05/18/2019 M79.644 Pain in right finger(s) Jody Shannon M.D., [facility] Plan of Treatment Future Appointment(s):12/31/2019 2:20 pm - Daisy Gaytan N.P. at [facility] Internal Medicine - C[facility]ob07/23/2019 - Jody Shannon M.D., FACPR00.2 PalpitationsComments: PALPITATIONS:Your Holter study demonstrated rare PVC's but multiple atrial premature beats.The nuclear stress test was completely benign.As before, do your best to stay well hydrated. It is possible that your post exercise symptom prominence could be related to mild dehydration. I think that taking the alprazolam sparingly is not unreasonable. Functional Status Description No Information Available Mental Status Description No Information Available Referrals Refer to Reason for Referral Status Appt Date Marcello Browning MD GERD, follow up EGD Closed 06/20/[address] [place] [address] [phone]
--- OUTSIDE RECORDS SUMMARY | 2019-09-28 16:26 | XMS REPORT | Continuity of Care Document ---
:1940 External Reference #:[id number] Author Name Whitley Gallardo MD Address [address], [place] [address] Care Team Providers Name Role Phone Jody Shannon MD - Internal Medicine Care Team Information [employer]or Crew Chief Lis Fong MD - Internal Care Team Information [employer] Chief Medicine Problems Active Problems Provider Date Pure [...] mouth qhs 30tabs K58.1 Jody Shannon, 05/24/2019 Nia, FACP 10mg Tablets Alendronate [...] M.Yfn, FACP Remeron 08/22/18 now taking 90tabs [facility], 02/12/2010 15mg Tablets 45 mg. 3 by [...] + D 2 tabs daily 60tabs Unknown [id number]-Hmal Tablets Vit D 1 pill 4 times [...] CPT Code Status Date Vaccine Lot # [id number] Given 02/28/2019 Fluzone High Dose 20077 Given 03/01/2018 Influenza Virus Vaccine, Quadrivalent, Split, Preservative Free 35847 Given 03/16/2017 Fluzone High Dose Q2038 Given 04/17/2016 Fluzone Vaccine 56722 Given 11/20/2015 Pneumococcal Conjugate Vaccine 13 Valent For [id number] Intramuscular Use 48561 Given 03/24/2015 Influenza Virus Vaccine, Quadrivalent, Split, Preservative Free 41395 Given 03/12/2014 Flu Vaccine Split Virus Preservative Free For Indiv 3Yr Older 07904 Given 08/07/2013 Tdap - Tetanus/Diptheria/Acellular Pertussis [id number] Q2036 Given 03/01/2013 Flulaval Vaccine 97064 Given 02/12/2010 Influenza Virus 3Yrs & Over 29898 Given 08/24/2007 Zoster (Zostavax) 69289 Given 04/11/2007 Pneumonia Vaccine [id number] 74199 Given 09/04/2000 Tdap - Tetanus/Diptheria/Acellular Pertussis [id number] [...] Test Result H/L Range Note Order 07/19/2019 [facility] Stress Test, <pending> [address] [place] [address] Nuclear [phone] Laboratory test 07/05/2019 [facility] Troponin-I 0.00 ng/mL < 0.03 [address] (TnI) [place], [place] [id number] [phone] Inr/Protime 07/05/2019 [facility] Inr 0.97 Normal 0.82-1.[address] [place] [address] [phone] CBC Auto Diff 07/05/2019 [facility] White Blood 5.4 Normal 3.5 -10.[address] Count 10^3/[place] [address] [phone] Red Blood Count 4.33 10^6/uL Normal 3.70-4.87 [...] Blood Cells % 0.0 Comp Metabolic 07/05/2019 [facility] Sodium 141 mmol/L Normal 135-[address] [place] [address] [phone] Potassium 3.8 mmol/L Normal 3.5-5.0 Chloride 107 [...] Egfr 86.4 >60 3 Laboratory test 07/05/2019 [facility] Troponin-I (TnI) 0.00 ng/ mL <0.03 [address] [place] [address] [phone] Order 07/03/2019 [facility] In-House EKG <pending> 1 Troponin-I testing on Plasma Separator Tubes (PST) has a known false positive rate of 0.20-0.40%. All positive troponins reflex immediately to secondary confirmatory testing. Using the [employer] DxI 800 Access Immunoassay systems, the 99th [...] immediately to secondary confirmatory testing. Using the [employer] DxI 800 Access Immunoassay systems, the 99th percentile upper reference limit was demonstrated to be < 0.03 ng/mL. Procedures Date Code Description Status 07/19/2019 44956 Stress Test Completed 07/19/2019 42411 Myocardial Perfusion Imaging Tomographic (Spect) Completed Multiple Studies 07/09/2019 71886 Holter Monitor Review (24 hr)dr alvarez & dimas only Completed 07/04/2019 81383 ECG Monitor/Recording W/Visual Superimposition Completed Scanning 07/03/2019 66252 EKG Tracing & Interpretation Completed 01/10/2019 [id number] Bone Mineral Density Test Completed 01/09/2019 [id number] Mammogram Completed 12/06/2017 [id number] Mammogram Completed 01/07/2017 [id number] Mammogram Completed 01/06/2016 [id number] Bone Mineral Density Test Completed 01/06/2016 [id number] Mammogram Completed 11/19/2015 [id number] Colonoscopy Completed 12/30/2014 [id number] Mammogram Completed 12/21/2013 [id number] Mammogram Completed 12/20/2012 [id number] Mammogram Completed 12/20/2012 [id number] Bone Mineral Density Test Completed 12/20/2011 [id number] Mammogram Completed 01/18/2011 [id number] Mammogram Completed 01/12/2010 [id number] Mammogram Completed 01/05/2008 [id number] Bone Mineral Density Test Completed 11/07/2003 [id number] Colonoscopy Completed Medical Devices Description No Information Available Encounters Type Date Location Provider Dx Diagnosis Office Visit 07/23/2019 [facility] Internal Jody Shannon, R00.2 Palpitations 4:30p Medicine Odin Manzanares M.D., FACP Office Visit 07/03/2019 [facility] Internal Jody Shannon, R00.2 Palpitations 2:00p Medicine Odin Manzanares M.D., FACP Office Visit 05/24/2019 [facility] Internal Jody Shannon, K58.1 Irritable bowel 3:30p Medicine Odin Manzanares M.D., FACP syndrome with constipation H65.21 Chronic serous otitis media, right ear K21.9 Gastro-esophageal reflux disease without esophagitis Office Visit 05/18/2019 4:30p [facility] Internal Jody Shannon, H66.91 Otitis media, Medicine [...] M.D. 07/19/2019 R00.2 Palpitations [facility].D., [facility] 07/09/2019 I49.1 Atrial premature depolarization Pj Guzman [...] Pain in right finger(s) Jody Shannon M.D., [facility] Plan of Treatment Future Appointment(s):12/31/2019 2:20 pm - Daisy Gaytan N.P. at [facility] Internal Medicine - [facility] Functional Status Description No Information Available Mental Status Description No Information Available Referrals Refer to Reason for Referral Status Appt Date Marcello Browning MD GERD, follow up EGD Closed 06/20/[address] [place] [address] [phone]
[2019-09-28] MEDS ORDERED: Ondansetron ODT TAB* 4 MG SL PRN (16:56)
[2019-09-28] MEDS ORDERED: oxyCODONE TAB* 5 MG TAB PO ONE (16:56)
--- NOTE | 2019-09-28 17:15 | ED ---
Upper Extremity Pain - HPI Summary HPI Summary: Patient is a 79 y/o F presenting to the ED for a chief complaint of right shoulder pain and right UE ecchymosis from the shoulder to the wrist after a fall that occurred about one week ago. On the night of 09/27/19, patient noticed the ecchymosis migrating from the shoulder down the arm towards the wrist. She called her PCP via a telemedicine call and was recommended to be seen at [facility] to rule out a blood clot. No aggravating or alleviating factors are reported. PMHx is significant for wrist fracture. - History of Current Complaint Chief Complaint: EDShoulderClavicleInj Stated Complaint: RT SHOULDER INJURY PER PT Time Seen by Provider: 09/28/19 16:26 Hx Obtained From: Patient Mechanism Of Injury: Fall From A Standing Position Onset/Duration: Atraumatic - Fall, Still Present Timing: Constant Severity Initially: Moderate Severity Currently: Moderate Pain Location: Other: - Right UE from the shoulder to the wrist Aggravating Factor(s): Nothing Alleviating Factor(s): Nothing Associated Signs & Symptoms: Positive: Bruising - Right UE ecchymosis from the shoulder to the wrist - Allergies/Home Medications Allergies/Adverse Reactions: Allergies Allergy/AdvReac Type Severity Reaction Status Date / Time hydrocodone Allergy Vomiting Verified 09/28/19 16:16 hydrocortisone Allergy Unknown Verified 09/28/19 16:16 Reaction Details nickel Allergy Unknown Verified 09/28/19 16:16 Reaction Details papaya Allergy GI Upset Verified 09/28/19 16:16 iodine AdvReac Rash Verified 09/28/19 16:16 latex AdvReac Rash Verified 09/28/19 16:16 Home Medications: Home Medications ALPRAZolam TAB* [Xanax TAB*] 0.25 mg PO Q6H PRN 04/03/14 [History Confirmed 02/21] Ascorbic Acid TAB* [Vitamin C TAB*] 500 mg PO QAM 04/03/14 [History Confirmed 11/12/17] Cholecalciferol TAB* [Vitamin D TAB*] 1,000 unit PO QAM 04/03/14 [History Confirmed 11/12/17] Levothyroxine TAB* [Synthroid 100 MCG TAB*] 100 mcg PO 0800 04/03/14 [History Confirmed 11/12/17] Mirtazapine TAB* [Remeron TAB*] 45 mg PO BEDTIME 04/03/14 [History Confirmed 02/21] Simvastatin 10 mg PO QAM 04/03/14 [History Confirmed 11/12/17] Zinc 30 tab PO SEE INSTRUCTIONS 04/03/14 [History Confirmed 11/12/17] Calcium Citrate TAB* [Citracal TAB*] 600 mg PO 1700 11/19/15 [History Confirmed 11/12/17] Famotidine TAB* [Pepcid 20 MG TAB*] 40 mg PO BID 11/19/15 [History Confirmed 02/21] Mag Carb/Aluminum Hydrox/Algin [Gaviscon Liquid] 1 tbsp PO SEE INSTRUCTIONS PRN 11/19/15 [History Confirmed 11/12/17] Magnesium Oxide 400 mg PO 1700 11/19/15 [History Confirmed 11/12/17] Multivitamin [Multivitamins] 1 cap PO QAM 11/19/15 [History Confirmed 11/12/17] Acetaminophen TAB* [Tylenol TAB*] 325 - 650 mg PO Q4H PRN 02/23/17 [History Confirmed 11/12/17] Amitriptyline TAB* [Elavil TAB*] 25 mg PO BEDTIME 02/23/17 [History Confirmed ] Butalb/Acetamin/Caff TAB* [Fioricet TAB*] 1 tab PO Q6H PRN 02/23/17 [History Confirmed 11/12/17] Estradiol VAGINAL TAB(NF) [Vagifem] 10 mcg VAGINAL SEE INSTRUCTIONS 02/23/17 [ History Confirmed 11/12/17] Nicotinamide 250 mg PO QAM 02/23/17 [History Confirmed 11/12/17] Gamaliel-3/Dha/Epa/Fish Oil [Fish Oil 1,000 mg Softgel] 1,000 mg PO 1700 02/23/17 [ History Confirmed 11/12/17] Pterostilbene 50mg Qam 50 mg PO QAM 02/23/17 [History Confirmed 11/12/17] Biotin 10 mg PO EVERY OTHER DAY 11/12/17 [History Confirmed 11/12/17] Ciprofloxacin 0.3% OPTH.VIVI* [Cipro 0.3% Opth*] 1 drop LEFT EYE Q4H 5 Days #1 btl 11/12/17 [Rx] Ondansetron TAB* [Zofran 4 MG Tab*] 4 mg PO Q6H PRN #10 tab 09/28/19 [Rx] oxyCODONE TAB* [Roxycodone TAB 5 mg*] 5 mg PO Q8H PRN #10 tab MDD 3 09/28/19 [Rx ] PMH/Surg Hx/FS Hx/Imm Hx Previously Healthy: Yes Endocrine/Hematology History: Reports: Hx Thyroid Disease - hypo Denies: Hx Diabetes Cardiovascular History: Reports: Hx Angina - chest pain/discomfort, Hx Hypercholesterolemia - HLD, STARTED ON SIMVASTATIN Denies: Hx Hypertension, Hx Pacemaker/ICD GI History: Reports: Hx Gall Bladder Disease - S/P SY, Hx Gastroesophageal Reflux Disease, Other GI Disorders - hx of gall bladder stones -removed History: Reports: Hx Kidney Infection - as a child, Other Problems/ Disorders - cyst on kidney Musculoskeletal History: Reports: Hx Arthritis, Hx of Fracture(s) - Wrist Denies: Hx Rheumatoid Arthritis, Hx Osteoporosis Sensory History: Reports: Hx Cataracts - both eyes, Hx Contacts or Glasses Denies: Hx Hearing Aid Opthamlomology History: Reports: Hx Cataracts - both eyes, Hx Contacts or Glasses Neurological History: Reports: Hx Headaches, Other Neuro Impairments/Disorders - VERTIGO Psychiatric History: Reports: Hx Anxiety, Hx Depression Denies: Hx Panic Disorder - Cancer History Hx Chemotherapy: No Hx Radiation Therapy: No - Surgical History Surgical History: Yes Surgery Procedure, Year, and Place: TONSILLECTOMY. APPENDECTOMY. CHOLECYSECTOMY. . URETHRAL SURGERY. LASER SX OF UTERINE FIBROIDS Hx Anesthesia Reactions: Yes - has nausea and emesis after anesthesia - even after colonoscopy Infectious Disease History: No Infectious Disease History: Denies: Traveled Outside the [place] in Last 30 Days - Family History Known Family History: Negative: Diabetes - Social History Occupation: Retired Lives: With Family Alcohol Use: Rare Hx Substance Use: No Substance Use Type: Reports: None Hx Tobacco Use: No Smoking Status (MU): Never Smoked Tobacco Review of Systems Positive: Arthralgia - Right shoulder Positive: Bruising - Right UE from the shoulder to the wrist All Other Systems Reviewed And Are Negative: Yes Physical Exam - Summary Physical Exam Summary: VITAL SIGNS: Reviewed. GENERAL: Patient is a well-developed and nourished FEMALE who is lying comfortable in the stretcher. Patient is not in any acute respiratory distress. HEAD AND FACE: No signs of trauma. No ecchymosis, hematomas or skull depressions. No sinus tenderness. EYES: PERRLA, EOMI x 2, No injected conjunctiva, no nystagmus. EARS: Hearing grossly intact. Ear canals and tympanic membranes are within normal limits. MOUTH: Oropharynx within normal limits. NECK: Supple, trachea is midline, no adenopathy, no JVD, no carotid bruit, no c- spine tenderness, neck with full ROM. CHEST: Symmetric, no tenderness at palpation. LUNGS: Clear to auscultation bilaterally. No wheezing or crackles. CVS: Regular rate and rhythm, S1 and S2 present, no murmurs or gallops appreciated. ABDOMEN: Soft, non-tender. No signs of distention. No rebound, no guarding, and no masses palpated. Bowel sounds are normal. EXTREMITIES: FROM in all other major joints, no edema, no cyanosis or clubbing. Decreased ROM in the right shoulder, ecchymosis around the right humerus, areas of discoloration, good pulses and good capillary refill. NEURO: Alert and oriented x 3. No acute neurological deficits. Speech is normal and follows commands. SKIN: Dry and warm. Triage Information Reviewed: Yes Vital Signs On Initial Exam: Initial Vitals Temp Pulse Resp BP Pulse Ox 98.0 F 96 19 144/87 95 09/28/19 16:12 09/28/19 16:12 09/28/19 16:12 09/28/19 16:12 09/28/19 16:12 Vital Signs Reviewed: Yes Procedures - Sedation Patient Received Moderate/Deep Sedation with Procedure: No Diagnostics - Vital Signs Vital Signs Temp Pulse Resp BP Pulse Ox 09/28/19 16:12 98.0 F 96 19 144/87 95 - Laboratory Lab Statement: Any lab studies that have been ordered have been reviewed, and results considered in the medical decision making process. - Radiology Shoulder X-ray Radiology Interpretation Completed By: Radiologist Summary of Radiographic Findings: Shoulder X-ray IMPRESSION: MINIMALLY DISPLACED FRACTURE AT THE SURGICAL NECK OF THE RIGHT HUMERUS. SUPERIOR CHARACTERIZATION CAN BE MADE WITH CT IMAGING. Reviewed by Dr. Real. Course/Dx - Course Assessment/Plan: Patient is a 79 y/o F presenting to the ED for a chief complaint of right shoulder pain and right UE ecchymosis from the shoulder to the wrist after a fall that occurred about one week ago. On the night of , patient noticed the ecchymosis migrating from the shoulder down the arm towards the wrist. She called her PCP via a telemedicine call and was recommended to be seen at [facility] to rule out a blood clot. No aggravating or alleviating factors are reported. PMHx is significant for wrist fracture. Shoulder x-ray shows a right humeral neck fracture nondisplaced. The patient was placed in a shoulder immobilizer. The patient was given was given oxycodone for the pain. Patient will the discharged home with follow-up with orthopedics. Patient is hemodynamically stable alert oriented 3. - Diagnoses Provider Diagnoses: Fracture of neck of humerus - Critical Care Time Critical Care Statement: Critical care time is provided exclusive of any time spent performing procedures. Discharge ED - Sign-Out/Discharge Documenting (check all that apply): Patient Departure - Discharge - Discharge Plan Condition: Stable Disposition: HOME Prescriptions: Ondansetron TAB* [Zofran 4 MG Tab*] 4 mg PO Q6H PRN #10 tab PRN Reason: Vomiting oxyCODONE TAB* [Roxycodone TAB 5 mg*] 5 mg PO Q8H PRN #10 tab MDD 3 PRN Reason: Pain - Severe Patient Education Materials: Proximal Humerus Fracture (ED) Referrals: Jody Shannon MD [Primary Care Provider] - Mario Burt MD [Medical Doctor] - Additional Instructions: RETURN TO THE EMERGENCY DEPARTMENT FOR CHANGING OR WORSENING SYMPTOMS. Follow up with your primary care physician in 3 days and follow up with orthopedics. - Billing Disposition and Condition Condition: STABLE Disposition: Home - Attestation Statements Document Initiated by Savita: Yes Documenting Scribe: Gladys Herrera Provider For Whom Savita is Documenting (Include Credential): Benoit Real MD Scribe Attestation: Gladys Pack scribed for Benoit Real MD on 09/29/19 at 1250. Scribe Documentation Reviewed: Yes Provider Attestation: The documentation as recorded by the Gladys benavides accurately reflects the service I personally performed and the decisions made by , Benoit Real MD Status of Scribe Document: Viewed
[2019-09-28 17:30] VITALS: BP 121/89
== END 2019-09-28 17:30 | disposition home or self-care (01) ==
LOC: ED 16:12
DX: S42.214A Unspecified nondisplaced fracture of surgical neck of right humerus, initial encounter for closed fracture (principal); M25.511 Pain in right shoulder; S40.011A Contusion of right shoulder, initial encounter; W19.XXXA Unspecified fall, initial encounter; Y92.9 Unspecified place or not applicable; Z79.899 Other long term (current) drug therapy; Z79.890 Hormone replacement therapy; E03.9 Hypothyroidism, unspecified; E78.00 Pure hypercholesterolemia, unspecified; R51 Headache; F41.9 Anxiety disorder, unspecified; F32.9 Major depressive disorder, single episode, unspecified
CPT/HCPCS: 99282; A9270-GY